=== PATIENT | male | born 1990 | race Caucasian/White ===

== ENCOUNTER 2017-03-09 20:41 | Emergency (ER) | payer MEDICAID ==
[~2017-03-09] VITALS: Ht 172.7 cm; Wt 58.0 kg
[~2017-03-09 20:41] MED LIST: BISM525O28 PO; FERR159T PO; OMEP20TA80 PO
[2017-03-09 20:46] VITALS: BP 138/95
== END 2017-03-10 04:19 | disposition left against medical advice (07) ==
LOC: ER 20:42
DX: K62.5 Hemorrhage of anus and rectum (principal); Z53.21 Procedure and treatment not carried out due to patient leaving prior to being seen by health care provider